=== PATIENT | female | born 1980 | race Caucasian/White ===

== ENCOUNTER 2016-05-07 10:43 | Emergency (ER) | payer OTHER ==
[2016-05-07 10:56] VITALS: TEMP 98.3; BMI 28.5
--- NOTE | 2016-05-07 12:05 | PDOC ---
History of Present Illness - History of Present Illness Initial Comments: 05/07/16 12:11 The patient is a 35 yo F with no significant past medical history who presents to the emergency department with abdominal pain, dysuria, and hematuria for 1 day. The patient states that her symptoms started yesterday, however today they have been getting progressively worse. The patient has abdominal pain localized to the suprapubic region. Her pain is described as a band around the abdomen and her pain is worse when she is urinating. The patient reports dysuria and worsening hematuria. The patient states she had a UTI in the past and her pain is similar to this. The patient also reports associated headache and lightheadedness. She went to her primary care facility this morning and was sent to the ED when she was noted to have elevated blood pressure. She denies any history of elevated BP in the past. She denies any nausea, vomiting, or diarrhea. She denies any chest pain or shortness of breath. The patient denies any recent illness, fevers, chills, or sick contacts. <Vera De Souza - Last Filed: 05/07/16 12:11> - General History Source: Patient, Old Records Exam Limitations: No Limitations <Alina Moreira - Last Filed: 05/07/16 14:13> - General Chief Complaint: Blood Pressure Problem Stated Complaint: DIZZINESS, HIGH BLOOD BP Time Seen by Provider: 05/07/16 11:09 Past History <Vera De Souza - Last Filed: 05/07/16 12:11> - Past Medical History Asthma: No Cancer: No Cardiac Disorders: No Diabetes: No HTN: No Seizures: No Thyroid Disease: No Other medical history: NONE - Psycho/Social/Smoking Cessation Hx Anxiety: No Suicidal Ideation: No Smoking History: Never smoked Have you smoked in the past 12 months: No Hx Alcohol Use: No Drug/Substance Use Hx: No Substance Use Type: None Hx Substance Use Treatment: No <Alina Moreria - Last Filed: 05/07/16 14:13> - Past Medical History Allergies/Adverse Reactions: Allergies Allergy/AdvReac Type Severity Reaction Status Date / Time No Known Allergies Allergy Verified 05/07/16 10:56 Home Medications: Ambulatory Orders Nitrofurantoin Monohyd/M-Cryst [Macrobid -] 100 mg PO BID #14 capsule 05/07/16 Review of Systems - Review of Systems Able to Perform ROS?: Yes Comments:: 05/07/16 12:12 GENERAL/CONSTITUTIONAL: No fever or chills. No weakness. HEAD, EYES, EARS, NOSE AND THROAT: No change in vision. No ear pain or discharge. No sore throat. CARDIOVASCULAR: No chest pain or shortness of breath. RESPIRATORY: No cough, wheezing, or hemoptysis. GASTROINTESTINAL: +Abdominal pain. No nausea, vomiting, diarrhea or constipation. GENITOURINARY: +Dysuria, +hematuria. No frequency, or change in urination. MUSCULOSKELETAL: No joint or muscle swelling or pain. No neck or back pain. SKIN: No rash NEUROLOGIC: +Headache, +dizziness. No vertigo, loss of consciousness, or change in strength/sensation. ENDOCRINE: No increased thirst. No abnormal weight change. HEMATOLOGIC/LYMPHATIC: No anemia, easy bleeding, or history of blood clots. ALLERGIC/IMMUNOLOGIC: No hives or skin allergy. <Vera De Souza - Last Filed: 05/07/16 12:11> *Physical Exam - Vital Signs Last Vital Signs Temp Pulse Resp BP Pulse Ox 98.3 F 91 H 20 161/94 99 05/07/16 10:54 05/07/16 10:54 05/07/16 10:54 05/07/16 10:54 05/07/16 10:54 - Physical Exam Comments: 05/07/16 12:12 GENERAL: Awake, alert, and fully oriented, in no acute distress HEAD: No signs of trauma EYES: PERRLA, EOMI, sclera anicteric, conjunctiva clear ENT: Auricles normal inspection, hearing grossly normal, nares patent, oropharynx clear without exudates. Moist mucosa NECK: Normal ROM, supple, no lymphadenopathy, JVD, or masses LUNGS: Breath sounds equal, clear to auscultation bilaterally. No wheezes, and no crackles HEART: Regular rate and rhythm, normal S1 and S2, no murmurs, rubs or gallops ABDOMEN: +Suprapubic tenderness to palpation, no guarding or rebound. Soft, nontender, normoactive bowel sounds. No masses EXTREMITIES: Normal range of motion, no edema. No clubbing or cyanosis. No cords, erythema, or tenderness NEUROLOGICAL: Cranial nerves II through XII grossly intact. Normal speech, normal gait SKIN: Warm, Dry, normal turgor, no rashes or lesions noted. <Vera De Souza - Last Filed: 05/07/16 12:11> - Vital Signs Last Vital Signs Temp Pulse Resp BP Pulse Ox 98.3 F 91 H 20 161/94 99 05/07/16 10:54 05/07/16 10:54 05/07/16 10:54 05/07/16 10:54 05/07/16 10:54 <Alina Moreira - Last Filed: 05/07/16 14:13> ED Treatment Course - LABORATORY CBC & Chemistry Diagram: 05/07/16 12:35 05/07/16 12:35 <Alina Moreira - Last Filed: 05/07/16 14:13> Medical Decision Making - Medical Decision Making 05/07/16 12:04 35-year-old female with no reported past medical history who presents to the emergency department with hematuria and suprapubic pain for 2 days; was found to have elevated blood pressure at primary care clinic today. Differential diagnosis includes but is not limited to: UTI, renal artery stenosis, renal cysts, nephrolithiasis, anemia, renal failure, electrolyte abnormality, toxic/ metabolic derangement. Plan: 1. Urine analysis 2. Basic labs 3. Pain management 4. Observe and reevaluate 05/07/16 14:11 Addendum: Labs were reviewed and are noted in the EMR. The urine has positive esterase and 16 white blood cells. Willl treat for UTI. Will repeat the blood pressure and have the patient follow-up with primary care physician. I will also discharge the patient on Macrobid 100 mg twice a day for 7 days. Return to the emergency department if symptoms persist, worsen, or new symptoms arise. <Alina Moreira - Last Filed: 05/07/16 14:13> *DC/Admit/Observation/Transfer - Attestations Scribe Attestion: 05/07/16 12:12 Documentation prepared by Vera De Souza, acting as medical assistant cardiology for Alina Moreira MD. <Vera De Souza - Last Filed: 05/07/16 12:11> - Discharge Dispostion Admit: No - Attestations Physician Attestion: 05/07/16 12:05 I, Dr. Alina Moreira, attest that the scribes documentation that appears above has been prepared under my direction and personally reviewed by me in its entirety. I confirmed that the note above accurately reflects all work, treatment, procedures, and medical decision-making performed by me. <Alina Moreira - Last Filed: 05/07/16 14:13> Diagnosis at time of Disposition: Hematuria, Suprapubic pain, acute, Urinary tract infection - Discharge Dispostion Disposition: HOME Condition at time of disposition: Stable - Prescriptions Prescriptions: Nitrofurantoin Monohyd/M-Cryst [Macrobid -] 100 mg PO BID #14 capsule - Patient Instructions Additional Instructions: You have a urinary tract infection and your blood pressure is elevated. You are prescribed Macrobid 100 mg take 1 tablet twice daily for 7 days. Please follow- up with your primary care physician to follow your blood pressure and perhaps start you on medication. Please return to the emergency department if your symptoms persist, worsen, or new symptoms arise.
[2016-05-07] MEDS ORDERED: ACETAMINOPHEN 500 MG TABLET (FP) PO ONE (12:06)
[2016-05-07] MEDS ORDERED: ACETAMINOPHEN 325 MG TABLET (FP) ONE (12:19)
[2016-05-07 12:41] LABS: BASOPHIL 0.8 % (0-2.0); EOSINOPHIL 0.7 % (0-4.5); MCH 29.4 pg (25.7-33.7); MCHC 34.1 g/dl (32.0-36.0); MEAN CELL VOLUME 86.2 fl (80-96); NEUTROPHILS 77.9 % (42.8-82.8); PLATELET COUNT 227 K/MM3 (134-434); RDW 12.9 % (11.6-15.6); WHITE BLOOD COUNT 13.4 K/mm3 (4.0-10.0)
[2016-05-07 12:50] LABS: URINE APPEARANCE SLCLOUDY; URINE BILIRUBIN NEGATIVE (NEGATIVE); URINE COLOR STRAW; URINE GLUCOSE (UA) NEGATIVE (NEGATIVE); URINE KETONE NEGATIVE (NEGATIVE); URINE NITRITE NEGATIVE (NEGATIVE); URINE PROTEIN NEGATIVE (NEGATIVE); URINE UROBILINOGEN NEGATIVE E.U./dl (0.2-1.0)
[2016-05-07 12:54] LABS: URINE BLOOD 2+ (NEGATIVE); URINE LEUK ESTERASE 1+ (NEGATIVE)
[2016-05-07 12:55] LABS: URINE RBC 5 /hpf (0-3); URINE WBC 16 /hpf (3-5)
[2016-05-07 13:04] LABS: CALCIUM 9.1 mg/dL (8.5-10.1); CREATININE 0.7 mg/dL (0.55-1.02); MAGNESIUM 2.1 mg/dL (1.8-2.4)
[2016-05-07] MEDS ORDERED: NITROFURANTOIN MACROCRYSTAL 50 MG CAPSULE (FP) PO SCH (13:30)
[2016-05-07] MEDS ORDERED: NITROFURANTOIN MACROCRYSTAL 50 MG CAPSULE (FP) ONE (13:49)
[2016-05-07 15:34] VITALS: BP 138/89; PULSE 78
== END 2016-05-07 15:34 | disposition home or self-care (01) ==
LOC: JER 10:43
DX: N39.0 Urinary tract infection, site not specified (principal); R10.30 Lower abdominal pain, unspecified; R31.9 Hematuria, unspecified
CPT/HCPCS: 36415; 80048; 81003; 81015; 83735; 84100; 84703; 85025; 87086; 87186; 99284-25

== ENCOUNTER 2023-04-05 09:15 | Emergency (ER) | payer OTHER ==
[2023-04-05 09:21] VITALS: BP 139/82; PULSE 107; RESP 18; TEMP 99.5; BMI 30.1
[2023-04-05] MEDS ORDERED: ACETAMINOPHEN 1000 MG/100 ML BAG IVPB ONE (11:56)
[2023-04-05] MEDS ORDERED: METOCLOPRAMIDE HCL INJECTION 10 MG/2 ML VIAL IVPB ONE (11:56)
[2023-04-05] MEDS ORDERED: SODIUM CHLORIDE 0.9% 500 ML INFUS.BAG IV ONE (11:56)
[2023-04-05] MEDS ORDERED: CEFTRIAXONE 1 GM in DEXTROSE 5%-WATER - 100 ML IVPB ONE (12:07)
[2023-04-05] MEDS ORDERED: METOCLOPRAMIDE HCL INJECTION 10 MG/2 ML VIAL ONE (12:35)
[2023-04-05] MEDS ORDERED: ACETAMINOPHEN INJECTION 100 ML IVPB ONE (12:35)
[2023-04-05] MEDS ORDERED: CEFTRIAXONE 1 GM/50 ML BAG ONE (12:39)
[2023-04-05 12:45] LABS: BASO % 0.3 % (0-2.0); EOS % 0.1 % (0-4.5); HEMATOCRIT 36.3 % (32.4-45.2); HEMOGLOBIN 11.7 GM/dL (10.7-15.3); LYMPH % 8.5 % (8-40); MCH 24.3 pg (25.7-33.7); MCHC 32.2 g/dl (32.0-36.0); MEAN CELL VOLUME 75.5 fl (80-96); MEAN PLT VOLUME 7.7 fl (7.5-11.1); MONO % 9.9 % (3.8-10.2); NEUT % 81.2 % (42.8-82.8); PLATELET COUNT 320 10^3/uL (134-434); RBC 4.81 M/mm3 (3.60-5.2); RDW 15.4 % (11.6-15.6); WHITE BLOOD COUNT 13.3 K/mm3 (4.0-10.0)
[2023-04-05 12:46] LABS: EPI CELLS >36 /uL (0-25.1); HYALINE CASTS 0 /uL (0-3.1); URINE APPEARANCE CLOUDY; URINE BACTERIA 1731 /uL (0-1359); URINE BILIRUBIN NEGATIVE (NEGATIVE); URINE COLOR YELLOW; URINE GLUCOSE (UA) NEGATIVE (NEGATIVE); URINE KETONE NEGATIVE (NEGATIVE); URINE LEUK ESTERASE 1+ (NEGATIVE); URINE NITRITE NEGATIVE (NEGATIVE); URINE PROTEIN 2+ (NEGATIVE); URINE RBC 172 /uL (0-23.9); URINE UROBILINOGEN 0.2 mg/dL (0.2-1.0); URINE WBC 160 /uL (0-25.8)
[2023-04-05 13:04] LABS: POTASSIUM 3.2 mmol/L (3.5-5.1)
[2023-04-05 13:06] LABS: CALCIUM 8.9 mg/dL (8.5-10.1)
[2023-04-05 13:07] LABS: ALBUMIN 3.1 g/dl (3.4-5.0); BLOOD UREA NITROGEN 21.6 mg/dL (7-18)
[2023-04-05 13:10] LABS: CREATININE 1.5 mg/dL (0.55-1.3)
[2023-04-05 13:11] LABS: BILIRUBIN,TOTAL 0.5 mg/dL (0.2-1); TOT PROT 7.6 g/dl (6.4-8.2)
== END 2023-04-05 17:20 | disposition home or self-care (01) ==
LOC: JER 09:15
PROC: 3E03329 Introduction of Other Anti-infective into Peripheral Vein, Percutaneous Approach (ICD-10-PCS; principal; 2023-04-05)
PROC: 3E033NZ Introduction of Analgesics, Hypnotics, Sedatives into Peripheral Vein, Percutaneous Approach (ICD-10-PCS; 2023-04-05)
PROC: 3E033GC Introduction of Other Therapeutic Substance into Peripheral Vein, Percutaneous Approach (ICD-10-PCS; 2023-04-05)
DX: R10.32 Left lower quadrant pain (principal); R50.9 Fever, unspecified; M79.10 Myalgia, unspecified site; R51.9 Headache, unspecified; R00.0 Tachycardia, unspecified; Q61.3 Polycystic kidney, unspecified; Z20.822 Contact with and (suspected) exposure to COVID-19
CPT/HCPCS: 0241U-QW; 36415; 74177-TC; 76830-TC; 80053; 81003; 83605; 84703; 85025; 87040; 87086; 99285-25